=== PATIENT | female | born 1940 | race Caucasian/White ===

== ENCOUNTER 2020-03-22 13:28 | Outpatient (CLI) | payer MEDICARE, SELFPAY ==
--- NOTE | ~2020-03-22 | CT_ITS ---
EXAMINATION: CT chest abdomen w con EXAM DATE: 03/22/2020 14:33 INDICATION: Surveillance for lung cancer. Breast cancer. TECHNIQUE: Spiral CT of the chest and abdomen was performed following intravenous injection of 100 mL Omnipaque 350. Axial, coronal and sagittal images were reviewed. Coronal maximum intensity pixel i mages of chest reviewed. The dose-length product (DLP) for this examination was 615.28 mGy-cm. The exposure was tailored according to patient size (auto mA exposure control), and iterative reconstruct ion (ASIR) was used as additional dose reduction technique. 01/16/2019 FINDINGS: CHEST: Moderate centrilobular emphysema. Previously seen right-sided chest tube has been removed. R ight lower lobe region of soft tissue in cavitation again identified, measures 3.0 cm in maximal dime nsion today (was 2.4 on prior study at similar level). Small chronic right pleural effusion, improvem ent compared to prior study. Some scattered regions of peripheral airspace disease in both lungs, jef e are new. Congenital aberrant right subclavian artery. Regions of right pleural calcification again noted. Tracheobronchial tree is patent. There is no mediastinal, hilar or axillary lymphadenopathy . There is no pneumothorax. Borderline cardiomegaly. There is mild coronary arterial calcificati on, arterial sclerosis. ABDOMEN: The liver, spleen, adrenal glands and pancreas are unremarkable. There is punctate cholelit hiasis. The kidneys enhance symmetrically. There is severely patulous chronic right renal pelvis dil ation with moderate caliectasis, was present on prior study but the previously seen enhancing urothel ium, upper urinary tract infection has resolved. There is a 2 mm punctate nonobstructing stone within the pelvis. There is no retroperitoneal lymphadenopathy. There is moderate scattered arterioscle rotic disease. There is small sliding gastroesophageal hiatal hernia. There is expected amount of colonic stool. No free intraperitoneal gas. There are no osteoblastic or osteolytic lesions identified. IMPRESSION: 1. Mild interval increase in size of round predominantly solid right lower lobe masslike region, cou ld indicate at least portion of this has malignancy. However, there are some other areas of new nonsp ecific peripheral opacity as well. 2. Moderate emphysema. Chronic right pleural plaques. 3. Improvement in small chronic right pleural effusion. 4. Chronic right-sided hydronephrosis. Reviewed, dictated and finalized at location A. IMPRESSION: 1. Mild interval increase in size of round predominantly solid right lower lob e masslike region, could indicate at least portion of this has malignancy. Andrade lady, there are some other areas of new nonspecific peripheral opacity as well. 2. Moderate emphysema. Chronic right pleural plaques. 3. Improvement in small chronic right pleural effusion. 4. Chronic right-sided hydronephrosis.
[2020-03-22 14:21] LABS: Estimated Glomerular Filt Rate 54
== END 2020-03-22 13:29 | disposition home or self-care (01) ==
PROVIDERS: PCP Family Medicine; Visit Provider Internal Medicine
DX: C50.311 Malignant neoplasm of lower-inner quadrant of right female breast (principal); Z17.0 Estrogen receptor positive status [ER+]; J43.9 Emphysema, unspecified; J92.9 Pleural plaque without asbestos; J90 Pleural effusion, not elsewhere classified; N13.30 Unspecified hydronephrosis
CPT/HCPCS: 36415; 71260; 74160; Q9967

== ENCOUNTER 2020-04-26 11:27 | Outpatient (CLI) | payer MEDICARE, SELFPAY ==
--- NOTE | 2020-04-26 | ECG_ITS ---
Measurements Intervals [place] Rate: 49 P: 38 AR: 155 QRS: 21 QRSD: 98 T: 15 QT: 454 QTc: 411 Interpretive Statements SINUS BRADYCARDIA ATRIAL PREMATURE COMPLEX EARLY PRECORDIAL R/S TRANSITION BORDERLINE ST-T WAVE ABNORMALITY- INFERIOR LEADS BASELINE WANDER- V4 ABNORMAL ECG Electronically Signed On 04-26-2020 12:09:27 CDT by Hang Hadley D.O.
== END 2020-04-26 11:28 | disposition home or self-care (01) ==
PROVIDERS: PCP Family Medicine; Visit Provider Internal Medicine
DX: R00.1 Bradycardia, unspecified (principal); R94.31 Abnormal electrocardiogram [ECG] [EKG]
CPT/HCPCS: 93005

== ENCOUNTER 2020-06-20 07:59 | Outpatient (CLI) | payer MEDICARE, SELFPAY ==
--- NOTE | 2020-06-20 09:30 | NEURO_ITS ---
TEST: ELECTROENCEPHALOGRAM DIAGNOSIS: MEMORY LOSS PATIENT NUMBER: [id number] EEG NUMBER: [id number] RECORDING DATE: 06/20/20 CONDITION OF RECORDING: Awake, drowsy and sleep EEG DESCRIPTION: The whole record consists of diffuse low voltage 15-18hz beta activity mixed with 6-7hz theta during drowsiness. Bilateral symmetrical sleep activity is seen during sleep. Photic stimulation produced normal drive. Nonparoxysmal. Nonfocal. Nonlateralizing. IMPRESSION: Only questionably abnormal record due to the presence of the excessive amount of slow activity. Considering the age of the patient clinical correlation recommended. These abnormalities could be suggestive of organic or metabolic encephalopathy. There is no evidence of any paroxysmal or asymmetrical activity. MTDD
== END 2020-06-20 08:00 | disposition home or self-care (01) ==
LOC: ANHNEURO 08:01
PROVIDERS: PCP Family Medicine; Visit Provider Psychiatry & Neurology Neurology
DX: R41.3 Other amnesia (principal); R94.01 Abnormal electroencephalogram [EEG]
CPT/HCPCS: 95816

== ENCOUNTER 2020-07-01 15:42 | Emergency (ER) | payer MEDICARE, SELFPAY ==
--- NOTE | ~2020-07-01 | CT_ITS ---
EXAMINATION: CT brain wo con DATE: 07/01/2020 18:13 INDICATION: Fall. Right temporal laceration, bruising right cheek TECHNIQUE: Computed tomography (CT) of the head was performed without intravenous contrast. The mA wa s adjusted according to patient size. Iterative reconstruction technique was employed. Exam dose: 60 5.33 mGy-cm total exam DLP. COMPARISON: 06/16/2019 MRI brain/brainstem 06/13/2019 CT brain FINDINGS: There is mild right lateral frontal cephalhematoma. No skull fracture or bone destruction is detected. Included paranasal sinuses and mastoid air cells are unremarkable. Carotid siphon internal carotid artery calcifications are noted. No intracranial mass lesion or hemorrhage or cerebrovascular accident. No midline shift or mass effec t. No apparent subdural or epidural hematoma is evident. IMPRESSION: Cerebral atherosclerosis Mild lateral right frontal cephalohematoma; no skull fracture No acute intracranial finding Reviewed, dictated and finalized at [facility]. Reviewed, dictated and finalized at location A.
--- NOTE | ~2020-07-01 | CT_ITS ---
EXAMINATION: CT facial & cervical spine wo DATE: 07/01/2020 18:13 INDICATION: Head injury, right temporal laceration, right cheek bruising, neck pain TECHNIQUE: Computed tomography (CT) of the facial bones and maxillofacial region was performed withou t intravenous contrast. Automated exposure control and iterative reconstruction technique were employ ed. Exam dose: 255.61 mGy-cm total exam DLP. COMPARISON: None. FINDINGS: The nasal bones and anterior maxillary spine are intact. The zygomatic arches are intact. T he frontozygomatic sutures are preserved. No facial fracture is detected. The orbital wu are intac t. No fracture or dislocation of the cervical spine. C1 and C2 are normally aligned and the odontoid pr ocess is intact. No prevertebral soft tissue swelling. There is mild to moderate degenerative disc disease and degenerative change at the apophyseal joints. Emphysematous changes are noted in the apical areas, as well as mild bilateral apical scarring. IMPRESSION: No facial fracture No cervical spine fracture; degenerative changes Reviewed, dictated and finalized at [facility]. Reviewed, dictated and finalized at location A.
[2020-07-01 16:12] VITALS: BP 147/45; PULSE 60; RESP 16; TEMP 37.1; O2SAT 99
--- NOTE | 2020-07-01 17:23 | ED.HEATRA ---
HPI - Head Injury General Chief complaint: Head Injury Stated complaint: fall, head lac Time Seen by Provider: 07/01/20 17:02 Source: patient Mode of arrival: wheelchair Limitations: dementia History of Present Illness HPI Narrative: This is a 80 year old female that presents to the ER for a fall today. Reports she was walking out into the garage and tripped and fell down 2 steps. Reports falling forward and hitting her face on the garage floor and a laceration to the forehead. Reports since she has had a headache and neck pain. Denies prodromal symptoms, chest pain, shortness of breath, vision changes, vomiting, joint pain, numbness or weakness. Related Data Home Medications Medication Instructions Recorded Confirmed Eliquis 5 mg DAILY 09/09/19 09/09/19 Restasis 1 drp OPHTHALMIC (EYE) BID 09/09/19 09/09/19 anastrozole [Arimidex] 1 mg DAILY 09/09/19 09/09/19 cyanocobalamin (vitamin B-12) 1,000 mcg PO DAILY 09/09/19 09/09/19 folic acid 1 mg PO DAILY 09/09/19 09/09/19 hydrocortisone [Cortef] 10 mg DAILY 09/09/19 09/09/19 lisinopril [Zestril] 10 mg PO DAILY 09/09/19 09/09/19 multivitamin 1 cap PO DAILY 09/09/19 09/09/19 omega-3 fatty acids 1,000 mg PO DAILY 09/09/19 09/09/19 pyridoxine (vitamin B6) 100 mg PO DAILY 09/09/19 09/09/19 Allergies Allergy/AdvReac Type Severity Reaction Status Date / Time erythromycin base Allergy Unknown Nausea Verified 07/01/20 17:05 Penicillins Allergy Unknown 30 years Verified 07/01/20 17:05 ago shot of pcn & strep developed hives Sulfa (Sulfonamide Allergy Unknown Nausea Verified 07/01/20 17:05 Antibiotics) Review of Systems Review of Systems: Narrative: CONSTITUTIONAL: Denies fever EYES: Denies visual changes CARDIOVASCULAR: Denies chest pain, palpitations RESPIRATORY: Denies dyspnea. GASTROINTESTINAL: Denies vomiting MUSCULOSKELETAL: Reports joint pain and myalgia. Denies back pain NEUROLOGIC: Reports headache. Denies numbness, or weakness. All systems reviewed & are unremarkable except as noted in HPI and below PMFSH Past Medical History Medical History (Updated 07/01/20 @ 19:26 by Jeannie Hopper PA-C) Acute renal failure Bilateral cataracts Breast cancer On armidex Cholecystectomy planned Chronic pleural effusion Colon polyps Dementia Early stages Diabetic peripheral neuropathy DM2 (diabetes mellitus, type 2) Dry eyes DVT (deep venous thrombosis) FH: mastectomy HTN (hypertension), malignant Hyperlipidemia Irritable bowel Klebsiella pneumoniae infection Non-small cell lung cancer No longer receiving treatment Pleural effusion due to another disorder Pleural drain has subsequently been removed Stress incontinence Surgical History Surgical History H/O arthroscopic knee surgery H/O breast biopsy H/O: hysterectomy History of appendectomy History of phacoemulsification of cataract of both eyes with intraocular lens implantation History of tonsillectomy Status post left foot surgery Social History Social History Social History: The patient lives with her the right. Patient remains a full code. She smoked a pack a cigarettes a day and quit in 1994. She has 2 children. She is to work in a bank. Smoking status: Never smoker Second hand tobacco smoke exposure: Yes Smoking end date: 10/28/94 Alcohol intake: unknown Substance use: unknown Gender identity (if verbalized by the patient): Female Spiritual care concerns: No Agree to blood products: Yes Exam Narrative: Exam Narrative: GENERAL: Well-appearing, well-nourished, and in no acute distress. HEAD: Normocephalic. Small right frontal scalp hematoma with 2cm overlying superficial laceration EYES: PERRLA and EOMI. ENT: Nares clear, no rhinorrhea or epistaxis. Mucous membranes moist. Oropharynx without tonsillar hypertrophy exudate or other lesio
[2020-07-01 19:30] VITALS: BP 155/79; PULSE 53; RESP 12; O2SAT 100
== END 2020-07-01 19:30 | disposition home or self-care (01) ==
PROVIDERS: Emergency Provider Emergency Medicine; PCP Family Medicine
DX: S00.03XA Contusion of scalp, initial encounter (principal); M54.2 Cervicalgia; F03.90 Unspecified dementia, unspecified severity, without behavioral disturbance, psychotic disturbance, mood disturbance, and anxiety; E11.42 Type 2 diabetes mellitus with diabetic polyneuropathy; Z86.718 Personal history of other venous thrombosis and embolism; I10 Essential (primary) hypertension; E78.5 Hyperlipidemia, unspecified; K58.9 Irritable bowel syndrome, unspecified; H04.129 Dry eye syndrome of unspecified lacrimal gland; Z98.42 Cataract extraction status, left eye; Z98.41 Cataract extraction status, right eye; Z96.1 Presence of intraocular lens; Z87.891 Personal history of nicotine dependence; Z79.01 Long term (current) use of anticoagulants; Z85.3 Personal history of malignant neoplasm of breast; Z85.118 Personal history of other malignant neoplasm of bronchus and lung; W10.9XXA Fall (on) (from) unspecified stairs and steps, initial encounter
CPT/HCPCS: 70450; 70486; 72125; 99284

== ENCOUNTER 2020-09-27 08:45 | Outpatient (CLI) | payer MEDICARE, SELFPAY ==
--- NOTE | ~2020-09-27 | CT_ITS ---
EXAMINATION: CT chest abdomen pelvis w con EXAM DATE: 09/27/2020 09:59 INDICATION: Right-sided lung cancer. TECHNIQUE: Spiral CT of the chest, abdomen and pelvis was performed following intravenous injection o f 100 mL Omnipaque 350. Axial, coronal and sagittal images were reviewed. Coronal maximum intensity pixel images of chest reviewed. The dose-length product (DLP) for this examination was 691.53 mGy-c m. The exposure was tailored according to patient size (auto mA exposure control), and iterative rec onstruction (ASIR) was used as additional dose reduction technique. Comparison is made to prior exami nation from 03/22/2020. FINDINGS: CHEST: There is moderate emphysema. Largest pulmonary nodule in the right lower lobe measuring 3.1 c m with small region of cavitation (previously about 2.9 cm). Right-sided calcified pleural plaques. T here is a pleural-based left lower lobe pulmonary opacity measuring about 2.5 x 0.9 cm (previously 1. 8 x 0.8). Congenital aberrant right subclavian artery. Trace right pleural effusion. Tracheobronchial tree is patent. There is no mediastinal, hilar or axillary lymphadenopathy. There is no pneumothorax. H eart normal in size. There is mild coronary arterial calcification, arterial sclerosis. ABDOMEN PELVIS: There are several liver cysts, largest in the left upper lobe lateral segment at 1.9 cm. The liver, spleen, adrenal glands and pancreas are unremarkable. Gallbladder is unremarkable. No biliary obstruction. There is chronic severely dilated right renal pelvis, with moderate caliecta sis, and a punctate dependent nonobstructing renal pelvic stone, most likely from long-standing conge nital UPJ narrowing given appearance. The kidneys do enhance symmetrically. The uterus is not identi fied and has likely been surgically resected. The bladder is unremarkable. There is no retroperiton eal or pelvic lymphadenopathy. There is moderate scattered arteriosclerotic disease. The appendix is not positively visualized. There is no pericecal inflammatory change to suggest appe ndicitis. The stomach and small bowel are unremarkable. There is moderate amount of colonic stool. No free intraperitoneal gas. There are no osteoblastic or osteolytic lesions identified. IMPRESSION: 1. Slight increase in size of right lower lobe mass (could be necrotic treated malignancy). 2. Left lower lobe pleural-based nodule with increase in size, could be metastatic. 3. Moderate emphysema. 4. Trace right pleural effusion. 5. Chronic right hydronephrosis. Reviewed, dictated and finalized at location A. GIRLS GOLF COACH IMPRESSION: 1. Slight increase in size of right lower lobe mass (could be necrotic treated malignancy). 2. Left lower lobe pleural-based nodule with increase in size, could be metast atic. 3. Moderate emphysema. 4. Trace right pleural effusion. 5. Chronic right hydronephrosis.
--- NOTE | ~2020-09-27 | MR_ITS ---
EXAMINATION: MR brain/brain stem wo/w con DATE: 09/27/2020 11:26 INDICATION: Malignant neoplasm of lower lobe of right lung. TECHNIQUE: Magnetic resonance imaging (MRI) of the brain and brainstem was performed without with 15 mL MultiHance intravenous contrast. Sequences included sagittal and axial T1-weighted FSE, axial diff usion-weighted FS EPI, axial T2*-weighted GRE, axial T2-weighted FLAIR Propeller, and axial T2-weight ed Propeller. Postcontrast sequences included axial, sagittal, and coronal T1-weighted FSE. Apparent diffusion coefficient (ADC) maps were created. COMPARISON: Brain MRI 06/16/2019 FINDINGS: There are scattered areas of nonspecific increased T2-weighted signal intensity in the cere bral white matter, which is within normal limits for the patient's age. Again seen are areas of incre ased T2-weighted signal intensity in the phuong. There is no intracranial hemorrhage, acute infarction, or abnormal intracranial mass lesion. The ventricles are normal in size. The paranasal sinuses are c lear. There are likely changes of ocular lens replacement surgeries. The mastoid air cells are normal . IMPRESSION: 1. No evidence of metastatic disease. 2. 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 Reviewed, dictated and finalized at location A. ANGE OPERATOR IMPRESSION: 1. No evidence of metastatic disease. 2. Stable pontine disease, which likely represents chronic small vessel ischemi c disease.
[2020-09-27 09:49] LABS: Estimated Glomerular Filt Rate 48
== END 2020-09-27 08:46 | disposition home or self-care (01) ==
PROVIDERS: PCP Family Medicine
DX: C34.31 Malignant neoplasm of lower lobe, right bronchus or lung (principal); J43.9 Emphysema, unspecified; R91.8 Other nonspecific abnormal finding of lung field
CPT/HCPCS: 70553; 71260; 74177; A9577; Q9967

== ENCOUNTER 2021-01-29 22:48 | Emergency (ER) | payer MEDICARE, SELFPAY ==
--- NOTE | ~2021-01-29 | CT_ITS ---
EXAMINATION: CT brain wo con DATE: 01/30/2021 00:34 INDICATION: Head injury. TECHNIQUE: Computed tomography (CT) of the head was performed without intravenous contrast. The mA wa s adjusted according to patient size. Iterative reconstruction technique was employed. The dose-lengt h product was 681.00 mGy-cm. COMPARISON: Head CT 07/01/2020 FINDINGS: There is no intracranial hemorrhage, acute infarction, or abnormal intracranial mass lesion . The ventricles are normal in size. There are likely changes of ocular lens replacement surgeries. T here is mild mucosal thickening in the ethmoid sinuses. The mastoid air cells are normal. IMPRESSION: 1. Normal brain. Reviewed, dictated and finalized at location A. IMPRESSION: 1. Normal brain.
--- NOTE | ~2021-01-29 | XR_ITS ---
EXAMINATION: XR hip RT min 2V DATE: 01/30/2021 00:42 INDICATION: Right hip pain. TECHNIQUE: 2 views of right hip were obtained. COMPARISON: CT 09/27/2020 FINDINGS: Bone alignment is normal. No fracture. There is mild right hip osteoarthritis. There is sev ere lumbar spondylosis. IMPRESSION: 1. Mild right hip osteoarthritis. Reviewed, dictated and finalized at location A.
[2021-01-29 22:49] VITALS: BP 148/46; PULSE 60; RESP 16; TEMP 37.1; O2SAT 97
[2021-01-29] MEDS: LACTATED RINGERS 1,000 ML 125 ML IV CONT (23:40)
--- NOTE | 2021-01-29 23:44 | ED.GENADULT ---
HPI - General Adult General Chief complaint: Extremity Injury, Lower Stated complaint: hip injury Time Seen by Provider: 01/29/21 23:19 Source: patient Mode of arrival: EMS Limitations: no limitations History of Present Illness HPI narrative: Patient is a 80-year-old female complaining of head and right hip pain after she lost her balance getting off the couch to go to her bedroom. Patient denies any syncopal episodes. Patient denies any neck, chest, abdomen, back or any other extremity pain/injury. Related Data Home Medications Medication Instructions Recorded Confirmed Eliquis 5 mg DAILY 09/09/19 09/29/20 Restasis 1 drp OPHTHALMIC (EYE) BID 09/09/19 09/29/20 anastrozole [Arimidex] 1 mg DAILY 09/09/19 09/29/20 cyanocobalamin (vitamin B-12) 1,000 mcg PO DAILY 09/09/19 09/29/20 folic acid 1 mg PO DAILY 09/09/19 09/29/20 hydrocortisone [Cortef] 10 mg DAILY 09/09/19 09/29/20 lisinopril [Zestril] 10 mg PO DAILY 09/09/19 09/29/20 multivitamin 1 cap PO DAILY 09/09/19 09/29/20 omega-3 fatty acids 1,000 mg PO DAILY 09/09/19 09/29/20 pyridoxine (vitamin B6) 100 mg PO DAILY 09/09/19 09/29/20 Allergies Allergy/AdvReac Type Severity Reaction Status Date / Time erythromycin base Allergy Unknown Nausea Verified 09/29/20 10:29 Penicillins Allergy Unknown 30 years Verified 09/29/20 10:29 ago shot of pcn & strep developed hives Sulfa (Sulfonamide Allergy Unknown Nausea Verified 09/29/20 10:29 Antibiotics) Review of Systems Review of Systems: All systems reviewed & are unremarkable except as noted in HPI and below Constitutional: Constitutional: Denies body ache(s), Denies chills, Denies excessive sweating, Denies fatigue, Denies fever(s), Denies headache(s), Denies lethargy, Denies malaise, Denies weakness and Denies weight loss Eyes: Eyes: Denies blurry vision, Denies change in vision and Denies loss of vision ENT: Denies dizziness, Denies ear discharge, Denies headache(s), Denies lip swelling, Denies epistaxis, Denies nasal congestion, Denies neck pain, Denies throat swelling and Denies tongue swelling Cardiovascular: Cardiovascular: Denies chest pain, Denies chest pain at rest, Denies chest pain with activity, Denies diaphoresis, Denies rapid heart rate, Denies edema, Denies irregular heart rhythm, Denies lightheadedness, Denies palpitations, Denies dyspnea and Denies dyspnea on exertion Respiratory: Respiratory: Denies chest congestion, Denies cough, Denies hemoptysis, Denies dyspnea and Denies dyspnea on exertion Gastrointestinal: Gastrointestinal: Denies abdominal pain, Denies melena, Denies hematochezia, Denies diarrhea, Denies nausea, Denies vomiting and Denies hematemesis Musculoskeletal: Musculoskeletal: Denies deformity, Denies joint swelling, Denies neck pain and Denies numbness Neurologic: Denies Abnormal speech present, Denies abnormal gait, Denies confusion, Denies dizziness, Denies focal weakness, Denies loss of vision, Denies numbness, Denies Other visual disturbances, Denies Sensory deficit (Neuro) and Denies weakness Psychiatric: Psychiatric: Denies confusion, Denies depression, Denies auditory hallucinations, Denies homicidal ideation and Denies suicidal ideation Endocrine: Endocrine: Denies cold intolerance, Denies excessive sweating, Denies fatigue, Denies heat intolerance and Denies palpitations Hematologic/Lymphatic: Hematologic/Lymphatic: Denies easy bleeding and Denies easy bruising Allergic/Immunologic: Allergic/Immunologic: Denies lip swelling, Denies throat swelling and Denies tongue swelling PMFSH Past Medical History Medical History Acute renal failure Bilateral cataracts Breast cancer On armidex Cholecystectomy planned Chronic pleural effusion Colon polyps Dementia Early stages Diabetic peripheral neuropathy DM2 (diabetes mellitus, type 2) Dry eyes DVT (deep venous thrombosis) FH: mastectomy HTN (hypertension
[2021-01-29 23:47] LABS: Basophils Absolute Auto 0.1 K/mm3 (0.0-0.1); Basophils Percent Auto 0.9 % (0.2-1.2); Eosinophils Absolute Auto 0.3 K/mm3 (0-0.3); Eosinophils Percent Auto 5.8 % (0-4.4); Hematocrit 38.4 % (37.0-47.0); Hemoglobin 11.8 g/dL (12.0-15.0); Immature Granulocyte Absolute 0.01 K/mm3 (0.00-0.031); Immature Granulocyte Percent A 0.2 % (0-0.5); Lymphocytes Percent Auto 10.5 % (18.3-44.2); Mean Corpuscular HGB Conc 30.7 g/dl (32-36); Mean Corpuscular Hemoglobin 27.6 pg (26-34); Mean Corpuscular Volume 89.9 fl (80-100); Mean Platelet Volume 9.2 fl (7.4-10.4); Monocytes Absolute Auto 0.7 K/mm3 (0.1-0.6); Monocytes Percent Auto 11.4 % (2.6-8.5); Neutrophils Absolute Auto 4.1 K/mm3 (1.3-6.7); Neutrophils Percent Auto 71.2 % (45.5-73.1); Platelet Count Result 233 k/mm3 (150-375); Red Blood Count 4.27 M/mm3 (4.2-5.4); Red Cell Distribution Width 14.4 % (11.5-14.5); White Blood Count 5.7 K/mm3 (4.5-10.0)
[2021-01-29 23:56] LABS: INR 0.8
[2021-01-29 23:57] LABS: Alanine Aminotransferase 16 U/L (4-35); Albumin Level 4.5 g/dL (3.5-5.1); Alkaline Phosphatase 101 U/L (38-126); Anion Gap 5 mmol/L (8-16); Aspartate Amino Transferase 35 U/L (14-36); Bilirubin,Total 0.2 mg/dL (0.2-1.3); Blood Urea Nitrogen 17 mg/dL (7-17); Carbon Dioxide 35 mmol/L (22-30); Chloride 102 mmol/L (98-107); Estimated Glomerular Filt Rate 48; Glucose 101 mg/dL (65-105); Potassium 4.6 mmol/L (3.4-5.0); Sodium 142 mmol/L (137-145)
[2021-01-29 23:57] LABS: Partial Thromboplastin Time 28.6 SECONDS (22.3-36.8)
[2021-01-30] MEDS: TETANUS,DIPHTHERIA,AC PERTUSSIS ADULT (0.5 ML) BOOSTRIX IM (01:35)
[2021-01-30 02:09] LABS: Add Urine Microscopic? YES; Appearance Urine Clear (Clear); Bacteria Urine Trace /hpf; Bilirubin Urine Negative (Negative); Color Urine Yellow (Yellow); Glucose Urine UA Negative (Negative); Ketones Urine Negative (Negative); Leukocyte Esterase Ur 1+ LEU/UL (Negative); Mucus Urine Rare /lpf; Nitrate Urine Negative (Negative); Protein Urine Negative (Negative); RBC Urine 0-2 /hpf (0-2); Specific Grav Ur 1.011 (1.001-1.035); Squamous Epithelial Cell Urine Rare /hpf (Few); Urobilinogen Urine Negative mg/dL (<2.0); WBC Urine 21-30 /hpf
[2021-01-30 02:20] LABS: Blood Urine Negative (Negative)
[2021-01-30 03:21] VITALS: BP 126/69; PULSE 56; RESP 16; O2SAT 94
== END 2021-01-30 03:22 | disposition home or self-care (01) ==
PROVIDERS: Emergency Provider Emergency Medicine; PCP Family Medicine
DX: S70.01XA Contusion of right hip, initial encounter (principal); S09.90XA Unspecified injury of head, initial encounter; N39.0 Urinary tract infection, site not specified; F03.90 Unspecified dementia, unspecified severity, without behavioral disturbance, psychotic disturbance, mood disturbance, and anxiety; E11.42 Type 2 diabetes mellitus with diabetic polyneuropathy; Z86.718 Personal history of other venous thrombosis and embolism; I10 Essential (primary) hypertension; E78.5 Hyperlipidemia, unspecified; K58.9 Irritable bowel syndrome, unspecified; H26.9 Unspecified cataract; Z85.3 Personal history of malignant neoplasm of breast; H04.129 Dry eye syndrome of unspecified lacrimal gland; Z87.891 Personal history of nicotine dependence; Z23 Encounter for immunization; Z79.01 Long term (current) use of anticoagulants; Z79.84 Long term (current) use of oral hypoglycemic drugs; Z85.118 Personal history of other malignant neoplasm of bronchus and lung; W08.XXXA Fall from other furniture, initial encounter
CPT/HCPCS: 36415; 70450; 73502; 80053; 81001; 85025; 85610; 85730; 87086; 87088; 90471; 90715; 99284; J7120

== ENCOUNTER 2021-07-20 02:10 | Emergency (ER) | payer MEDICARE, SELFPAY ==
--- NOTE | ~2021-07-20 | CT_ITS ---
EXAMINATION: CT brain wo con DATE: 07/20/2021 03:09 INDICATION: Head injury. TECHNIQUE: Computed tomography (CT) of the head was performed without intravenous contrast. The mA wa s adjusted according to patient size. Iterative reconstruction technique was employed. The dose-lengt h product was 605.33 mGy-cm. COMPARISON: Head CT 01/30/2021 FINDINGS: There is no intracranial hemorrhage, acute infarction, or abnormal intracranial mass lesion . There are scattered areas of low attenuation in the cerebral white matter, which is within normal l imits for the patient's age. The ventricles are normal in size. There are likely changes of ocular le ns replacement surgeries. There is mild mucosal thickening in the ethmoid sinuses. The mastoid air ce lls are normal. There is left posterior scalp soft tissue swelling. IMPRESSION: 1. Normal aging brain. Reviewed, dictated and finalized at location A. IMPRESSION: 1. Normal aging brain.
--- NOTE | ~2021-07-20 | CT_ITS ---
EXAMINATION: CT cervical spine wo con DATE: 07/20/2021 03:10 INDICATION: Neck injury and pain. TECHNIQUE: Computed tomography (CT) of the cervical spine was performed without intravenous contrast. Automated exposure control and iterative reconstruction technique were employed. The dose-length pro duct was 143.55 mGy-cm. COMPARISON: CT cervical spine 07/01/2020 FINDINGS: There are nodules in the thyroid measuring up to 1.8 cm on the right. There is an aberrant right subclavian artery. There is mild emphysema. There is 7 degrees levocurvature of cervical spine. Vertebral body heights are normal. There is moderately decreased disc height at C3-C4. The following disc levels are specifically discussed: C2-C3: There is no uncovertebral joint osteoarthritis. There is severe bilateral facet joint osteoart hritis. There is mild left neural foraminal stenosis. There is no central canal stenosis. C3-C4: There is severe bilateral uncovertebral joint osteoarthritis. There is moderate right and zoie re left facet joint osteoarthritis. There is mild left neural foraminal stenosis. There is mild centr al canal stenosis. C4-C5: There is moderate bilateral uncovertebral joint osteoarthritis. There is moderate right and se martha left facet joint osteoarthritis. There is mild bilateral neural foraminal stenosis. There is mil d central canal stenosis. C5-C6: There is moderate right and mild left uncovertebral joint osteoarthritis. There is mild bilate ral facet joint osteoarthritis. There is mild left neural foraminal stenosis. There is mild central c anal stenosis. C6-C7: There is moderate bilateral uncovertebral joint osteoarthritis. There is mild right and severe left facet joint osteoarthritis. There is mild bilateral neural foraminal stenosis. There is mild ce ntral canal stenosis. There is asymmetric stenosis of left lateral recess. C7-T1: There is no uncovertebral joint osteoarthritis. There is mild bilateral facet joint osteoarthr itis. There is no neural foraminal stenosis. There is no central canal stenosis. IMPRESSION: 1. No fracture. 2. Moderate cervical spondylosis. 3. Mild emphysema. 4. Multinodular goiter. Consider thyroid ultrasound for risk stratification. Reviewed, dictated and finalized at location A.
[2021-07-20 02:10] VITALS: BP 140/68; PULSE 77; RESP 16; TEMP 37.3; O2SAT 98
--- NOTE | 2021-07-20 02:34 | ED.FALL ---
HPI - Fall General Chief Complaint: Fall Stated Complaint: glf unknown if on thinners Time Seen by Provider: 07/20/21 02:23 Source: patient Mode of arrival: EMS Limitations: no limitations History of Present Illness HPI Narrative: Patient is a 81-year-old female complaining of hitting the back of her head after she tripped and fell entering a doorway. Patient denies any loss of consciousness. Patient states that her head pain is mild. Patient also complaining of mild neck pain. Patient denies any chest, abdomen, back, hip or any extremity pain/injury. Related Data Home Medications Medication Instructions Recorded Confirmed cyanocobalamin (vitamin B-12) 1,000 mcg PO DAILY 09/09/19 02/09/21 folic acid 1 mg PO DAILY 09/09/19 02/09/21 hydrocortisone [Cortef] 10 mg DAILY 09/09/19 02/09/21 pyridoxine (vitamin B6) 100 mg PO DAILY 09/09/19 02/09/21 Allergies Allergy/AdvReac Type Severity Reaction Status Date / Time erythromycin base Allergy Unknown Nausea Verified 07/20/21 02:25 Penicillins Allergy Unknown 30 years Verified 07/20/21 02:25 ago shot of pcn & strep developed hives Sulfa (Sulfonamide Allergy Unknown Nausea Verified 07/20/21 02:25 Antibiotics) Review of Systems Review of Systems: All systems reviewed & are unremarkable except as noted in HPI and below Constitutional: Constitutional: Denies body ache(s), Denies chills, Denies excessive sweating, Denies fatigue, Denies fever(s), Denies headache(s), Denies lethargy, Denies malaise, Denies weakness and Denies weight loss Eyes: Eyes: Denies blurry vision, Denies change in vision and Denies loss of vision ENT: Denies dizziness, Denies ear discharge, Denies headache(s), Denies lip swelling, Denies epistaxis, Denies nasal congestion, Denies neck pain, Denies throat swelling and Denies tongue swelling Cardiovascular: Cardiovascular: Denies chest pain, Denies chest pain at rest, Denies chest pain with activity, Denies diaphoresis, Denies rapid heart rate, Denies edema, Denies irregular heart rhythm, Denies lightheadedness, Denies palpitations, Denies dyspnea and Denies dyspnea on exertion Respiratory: Respiratory: Denies chest congestion, Denies cough, Denies hemoptysis, Denies dyspnea and Denies dyspnea on exertion Gastrointestinal: Gastrointestinal: Denies abdominal pain, Denies melena, Denies hematochezia, Denies diarrhea, Denies nausea, Denies vomiting and Denies hematemesis Musculoskeletal: Musculoskeletal: Denies abnormal gait, Denies deformity, Denies joint swelling, Denies limited range of motion, Denies neck pain and Denies numbness Neurologic: Denies Abnormal speech present, Denies abnormal gait, Denies confusion, Denies dizziness, Denies headache(s), Denies focal weakness, Denies loss of vision, Denies numbness, Denies Other visual disturbances, Denies Sensory deficit (Neuro) and Denies weakness Psychiatric: Psychiatric: Denies confusion, Denies depression, Denies auditory hallucinations, Denies homicidal ideation and Denies suicidal ideation Endocrine: Endocrine: Denies cold intolerance, Denies excessive sweating, Denies fatigue, Denies heat intolerance and Denies palpitations Hematologic/Lymphatic: Hematologic/Lymphatic: Denies easy bleeding and Denies easy bruising Allergic/Immunologic: Allergic/Immunologic: Denies lip swelling, Denies throat swelling and Denies tongue swelling PMFSH Past Medical History Medical History Acute renal failure Bilateral cataracts Breast cancer On armidex Cholecystectomy planned Chronic pleural effusion Colon polyps Dementia Early stages Diabetic peripheral neuropathy DM2 (diabetes mellitus, type 2) Dry eyes DVT (deep venous thrombosis) FH: mastectomy HTN (hypertension), malignant Hyperlipidemia Irritable bowel Klebsiella pneumoniae infection Non-small cell lung cancer No longer receiving treatment Pleural effusion due to another diso
[2021-07-20 05:22] VITALS: BP 139/70; PULSE 80; RESP 16; O2SAT 98
== END 2021-07-20 04:54 | disposition home or self-care (01) ==
PROVIDERS: Emergency Provider Emergency Medicine; PCP Family Medicine
DX: S09.90XA Unspecified injury of head, initial encounter (principal); S16.1XXA Strain of muscle, fascia and tendon at neck level, initial encounter; F03.90 Unspecified dementia, unspecified severity, without behavioral disturbance, psychotic disturbance, mood disturbance, and anxiety; E11.42 Type 2 diabetes mellitus with diabetic polyneuropathy; C34.90 Malignant neoplasm of unspecified part of unspecified bronchus or lung; C50.919 Malignant neoplasm of unspecified site of unspecified female breast; H04.129 Dry eye syndrome of unspecified lacrimal gland; I10 Essential (primary) hypertension; K58.9 Irritable bowel syndrome, unspecified; Z86.718 Personal history of other venous thrombosis and embolism; Z85.3 Personal history of malignant neoplasm of breast; Z86.010 Personal history of colon polyps; Z98.42 Cataract extraction status, left eye; Z98.41 Cataract extraction status, right eye; Z96.1 Presence of intraocular lens; Z87.891 Personal history of nicotine dependence; Z79.811 Long term (current) use of aromatase inhibitors; Z79.84 Long term (current) use of oral hypoglycemic drugs; E04.2 Nontoxic multinodular goiter; J43.9 Emphysema, unspecified; M47.812 Spondylosis without myelopathy or radiculopathy, cervical region; W01.0XXA Fall on same level from slipping, tripping and stumbling without subsequent striking against object, initial encounter
CPT/HCPCS: 70450; 72125; 99284